=== PATIENT | male | born 1995 | race Caucasian/White ===

== ENCOUNTER 2024-08-21 07:12 | Emergency (ER) | payer BC, SELFPAY ==
[2024-08-21] VITALS (11 sets, daily range): BP systolic 101–139; BP diastolic 57–89; BMI 25.5
--- NOTE | 2024-08-21 08:13 | ED.GENMED ---
History of Present Illness
<Renzo Richey PA-C - Last Filed: 08/21/24 14:47>
General
Chief Complaint: Musculo-Skeletal Complaint
Time Seen by Provider: 08/21/24 08:06
History of Present Illness
History of Present Illness:
29-year-old male with history of right total hip replacement after major trauma presents for evaluation of suspected right hip dislocation. Occurred after falling down stairs this morning. Pain is reasonably well-controlled at this time. No
distal right lower extremity paresthesias. Denies any other injuries or pain. Not on blood thinners. No intake this morning.
Past History
<Renzo Richey PA-C - Last Filed: 08/21/24 14:47>
Past History
ED Past Medical History: None
Social History
Tobacco: Smoker
Employment: Employed
Review of Systems
<Renzo Richey PA-C - Last Filed: 08/21/24 14:47>
Review of Systems
Allergies reviewed?: Yes
All Other Systems: ROS reviewed and negative except as documented in HPI and ROS
Phy Exam
<Renzo Richey PA-C - Last Filed: 08/21/24 14:47>
Physical Exam
Physical Exam:
GEN: Well appearing, NAD, WDWN
HEENT: Oral mucosa moist, no scleral icterus
Cardiac: Regular rate
Lung: No respiratory distress, no tachypnea
MSK: Shortening and internal rotation of the right lower extremity consistent with dislocation
Skin: Good color, no pallor or jaundice, no rashes
Neuro: AO x3, moves all extremities freely
Psych: Calm, cooperative
Course
<KRIS Perez Last Filed: 08/21/24 14:47>
Orders/Labs/Results
Orders:
Orders
08/21/24 07:34
Hip, Right 2-3 Views [CR Hip - RT w/wo Pel 2-3 Vw*] Urgent
Comment:
Reason For Exam: pain and shortened
Include a pelvis x-ray?: Yes
08/21/24 08:17
Propofol [Diprivan] 20 ml .ROUTE .STK-MED
08/21/24 08:39
Hip, Right 1 View [CR Hip - RT without Pel 1 Vw] Urgent
Comment:
Reason For Exam: hip relocation
Vital Signs
Initial and Last Documented VS:
Initial Vital Signs
Temp Pulse Resp BP Pulse Ox
97.6 F 108 16 139/86 98
08/21/24 07:20 08/21/24 07:20 08/21/24 07:20 08/21/24 07:20 08/21/24 07:20
Last Documented Vital Signs
Temp Pulse Resp BP Pulse Ox
98.2 F 66 18 120/67 99
08/21/24 09:30 08/21/24 09:45 08/21/24 09:45 08/21/24 09:45 08/21/24 09:45
<Pb Mcdaniel, DO - Last Filed: 08/21/24 09:11>
Orders/Labs/Results
Orders:
Orders
08/21/24 07:34
Hip, Right 2-3 Views [CR Hip - RT w/wo Pel 2-3 Vw*] Urgent
Comment:
Reason For Exam: pain and shortened
Include a pelvis x-ray?: Yes
08/21/24 08:17
Propofol [Diprivan] 20 ml .ROUTE .STK-MED
08/21/24 08:39
Hip, Right 1 View [CR Hip - RT without Pel 1 Vw] Urgent
Comment:
Reason For Exam: hip relocation
Vital Signs
Initial and Last Documented VS:
Initial Vital Signs
Temp Pulse Resp BP Pulse Ox
97.6 F 108 16 139/86 98
08/21/24 07:20 08/21/24 07:20 08/21/24 07:20 08/21/24 07:20 08/21/24 07:20
Last Documented Vital Signs
Temp Pulse Resp BP Pulse Ox
98.2 F 66 18 120/67 99
08/21/24 09:30 08/21/24 09:45 08/21/24 09:45 08/21/24 09:45 08/21/24 09:45
Procedures
<Renzo Richey PA-C - Last Filed: 08/21/24 14:47>
Moderate Sedation
ASA Risk Score: Class I
Chart and allergies reviewed: Yes
Consent for anesthesia obtained: Yes
Time out completed (validating right patient & procedure): Yes
Moderate Sedation Start Time(when first medication is given): 08:37
History of difficult intubation: No
Airway free of obstruction: Yes
Patient has a gag reflex: Yes
Patient is able to open mouth: Yes
Patient has no dentures: Yes
Patient has no loose teeth: Yes
Medication administered by Provider during Moderate Sedation: IV Propofol (mg)
Total dose administered: 100
Time drug administered: 08:37
Moderate Sedation Procedure End Time: 08:47
Joint/Fracture Reduction
Right Hip:
Indication for procedure:: Dislocation of prosthesis
Procedure completed by: Renzo Richey PA-C
Consent form signed: Yes
Joint reduced: with anesthesia sedation
Injury was: closed
Further treatement: needs re-check only
Post reduction exam: stable
Capillary Refill: normal
Normal distal neurovascular exam?: Yes
<Renzo Richey PA-C - Last Filed: 08/21/24 14:47>
MDM/Problems Addressed
MDM/Problems Addressed:
Joint was reduced under sedation with no complications. Immobilizer placed, precautions discussed, outpatient orthopedic follow-up advised
<Renzo Richey PA-C - Last Filed: 08/21/24 14:47>
*Critical Care Note
Total Time (30-74mins, 75-104mins- exclusive of procedures): Not Applicable
ED Attending Note
<Renzo Richey PA-C - Last Filed: 08/21/24 14:47>
-
Portions of this chart may have been created with voice recognition software.� Occasional wrong word or��sound alike� substitutions may have occurred due to the inherent limitations of voice recognition software.
<Pb Mcdaniel DO - Last Filed: 08/21/24 09:11>
ED Attending Note
Patient seen and examined by attending physician: Yes
ED Attending Note:
I reviewed and agree with history and treatment plan by Rustam Richey. My exam revealed 20-year-old male no acute distress with right leg internally rotated. X-ray shows dislocation, patient tolerated sedation and reduction well. Stable for discharge.
Discharge Plan
Departure
Patient Disposition: Home (Routine Discharge)
Date of Disposition: 08/21/24
Time of Disposition: 09:02
Patient with high blood pressure during this ER visit?: No
Discharge Problem:
Dislocation of internal right hip prosthesis
Instructions: Hip Dislocation (DC)
Prescriptions:
No Action
sertraline 100 MG tablet
100 mg PO DAILY
Patient Comments:
Pt. took 10 tabs this AM
Referrals:
Lidia Mendoza CRNP [Family Provider] -
Activity Restrictions/Additional Instructions:
Use the immobilizer at all times until you follow up with your support specialist
Interventions
Interventions:
*Risk Screen - Suicide Last Done: 08/21/24 07:20
*General Assessment Last Done: 08/21/24 08:07
*Neglect/Abuse Screening Last Done: 08/21/24 07:20
ED- Fall Risk Assessment Last Done: 08/21/24 10:54
*ED COVID-19 Vaccine History Last Done: 08/21/24 08:07
*Nursing Disposition Last Done: 08/21/24 10:54
ED-Musculoskeletal Assessment Last Done: 08/21/24 08:07
Discharge Date and Time
Discharge Date/Time: 08/21/24 10:55
Print Language: SYRIAN
== END 2024-08-21 10:55 | disposition home or self-care (01) ==
LOC: EMR 07:12
PROVIDERS: EMERGENCY PHYSICIAN Emergency Medicine; FAMILY PHYSICIAN Nurse Practitioner Family
DX: T84.020A Dislocation of internal right hip prosthesis, initial encounter (principal); W10.9XXA Fall (on) (from) unspecified stairs and steps, initial encounter; F17.200 Nicotine dependence, unspecified, uncomplicated
CPT/HCPCS: 27265; 99152; 99285; 73501; 73502